=== PATIENT | male | born 1985 | race Caucasian/White ===

== ENCOUNTER → 2016-05-23 | Outpatient (CLI) | payer OTHER ==
[2016-05-23 19:23] LABS: ALBUMIN 4.2 GM/DL (3.2-5.2); ALBUMIN/GLOBULIN RATIO 1.56 (1.00-1.93); ALKALINE PHOSPHATASE 52 U/L (45-117); ALT/SGPT 36 U/L (12-78); ANION GAP 8 MEQ/L (8-16); AST/SGOT 14 U/L (15-37); BILIRUBIN,TOTAL 0.5 MG/DL (0.2-1.0); BLOOD UREA NITROGEN 15 MG/DL (7-18); CALCIUM LEVEL 8.9 MG/DL (8.5-10.1); CARBON DIOXIDE LEVEL 28 MEQ/L (21-32); CHLORIDE LEVEL 106 MEQ/L (98-107); CHOLESTEROL LEVEL 200 MG/DL (<200); CREATININE FOR GFR 1.05 MG/DL (0.70-1.30); GLOMERULAR FILTRATION RATE > 60.0 (>60); GLUCOSE, FASTING 87 MG/DL (70-105); POTASSIUM SERUM 4.1 MEQ/L (3.5-5.1); SODIUM LEVEL 142 MEQ/L (136-145); TOTAL PROTEIN 6.9 GM/DL (6.4-8.2); TRIGLYCERIDES LEVEL 68 MG/DL (<150)
== END ==
LOC: M WUC 08:02
PROVIDERS: ATTEND Emergency Medicine
DX: I10 Essential (primary) hypertension (principal); E78.2 Mixed hyperlipidemia

== ENCOUNTER 2016-06-01 09:11 | Emergency (ER) | payer OTHER ==
[2016-06-01] MEDS ORDERED: FAMOTIDINE 20 MG TAB As Ordered ONE (10:05)
[2016-06-01] MEDS ORDERED: diphenhydrAMINE 25 MG CAP As Ordered ONE (10:05)
[2016-06-01] MEDS ORDERED: methylPREDNISolone INJ 125 MG/2 ML VIAL (J2930) As Ordered ONE (10:05)
--- NOTE | 2016-06-01 10:29 | EDDOCDS ---
Nurse's Notes [facility] Name: Bk Lugo Age: 30 yrs Sex: Male : 1985 Arrival Date: 06/01/2016 Time: 09:11 Bed TR7 Private MD: Kraig Sanchez P. Diagnosis: Urticaria Presentation: 06/01 09:18 Presenting complaint: Patient states: pt c/o "allergic reaction." denies known allergy. ead onset of hives yesterday. reports taking 2 Benadryl's last night with no improvement. redness and swelling around eyes. Onset: The symptoms/episode began/occurred gradually, yesterday. The patient has a history of a previous allergic reaction. reports to [facility]. Anaphylaxis evaluation, the patient reports or I have noted the following symptoms which indicate a significant risk of anaphylaxis: no signs or symptoms of anaphylaxis were noted. Adult Sepsis Screening: The patient does not have new or worsening altered mentation. Patient's respiratory rate is less than 22. Systolic blood pressure is greater than 100. Patient has a qSOFA score of 0- Negative Sepsis Screen. Suicide/Homicide risk assessment- the patient denies having any suicidal and/or homicidal ideations and does not present with any other emotional, behavioral or mental health complaints. Status: Patient is not a sales service professional or dependent. Transition of care: patient was not received from another setting of care. 09:18 Acuity: ROBEL Level 3 ead 09:18 Method Of Arrival: Walkin/Carried/Asstd ead Triage Assessment: 09:22 General: Appears in no apparent distress, comfortable, Behavior is appropriate for age, ead cooperative. Pain: Denies pain. HIV screening NA for this visit Offered previously. Neurological: No deficits noted. Respiratory: Airway is patent Respiratory effort is even, unlabored, Reports no respiratory complaints. Derm: Rash noted that is itchy, on face, right arm and left arm. Historical: - Allergies: Amoxicillin; SULFA (SULFONAMIDES); - Home Meds: 1. Benadryl Unknown Oral every 6 hours 2. lisinopril 10 mg Oral tab once daily 3. esomeprazole magnesium 40 mg Oral cpDR once daily 4. Flonase 50 mcg/actuation Nasal spsn once daily 5. Singulair 10 mg oral tab once daily 6. levocetirizine 5 mg oral tab once daily - PMHx: Hypertension; - PSHx: Tonsillectomy; - Social history: Smoking status: Patient uses tobacco products, current every day smoker. No barriers to communication noted, The patient speaks fluent Cambodian, Speaks appropriately for age. - Family history: Not pertinent. - : The pt / caregiver states he / she is not on anticoagulants. Home medication list is obtained from the patient. - Exposure Risk Screening:: None identified. Screenin:23 Screening information is obtained from the patient. Fall risk: No risks identified. ead Assistance ADL's: requires no assistance with activities of daily living. Abuse/DV Screen: The patient / caregiver reports he/she is: not in a situation that causes fear, pain or injury. Nutritional screening: No deficits noted. Advance Directives: Currently, there is no health care proxy. There is no Power of Heavy Equipment Technician. home support is adequate. Assessment: 10:23 General: Appears in no apparent distress, Behavior is appropriate for age, cooperative. ead Neurological: No deficits noted. Respiratory: Airway is patent Respiratory effort is even, unlabored. Derm: Rash noted that is itchy, red, on face, right arm and left arm. Vital Signs: 09:13 BP 138 / 74; Pulse 71; Resp 18; Temp 97.4(O); Pulse Ox 98% on R/A; Weight 98.43 kg (R); dem1 Height 6 ft. 0 in. (182.88 cm) (R); Pain 0/10; 10:28 BP 137 / 79; Pulse 78; Resp 16; Temp 97.0(O); Pulse Ox 99% on R/A; Pain 0/10; ead 09:13 Body Mass Index 29.43 (98.43 kg, 182.88 cm) [facility] Vitals: 09:13 Log In Time: June 01, 2016 at 09:11. [facility] ED Course: 09:12 Patient visited by Christine Whalen. az 09:12 Patient moved to Waiting az 09:13 Kraig Sanchez is Private Physician. dem1 09:14 Patient visited by Ian Samson. dem1 09:14 Patient moved to Pre RCE dem1 09:20 Triage Initiated ead 09:28 Patient moved to Triage 1 ml6 09:40 [facility] Cap[facility] cc10 09:40 Kirill Peoples MD is Attending Physician. cc10 09:40 Patient visited by Truong Capone PA-C. cc10 09:40 Patient visited by Truong Capone PA-C. cc10 09:54 Kraig Sanchez is Referral Physician. cc10 10:10 Patient moved to PR1 / 25 ead 10:23 The patient / caregiver is instructed regarding the plan of care and ED course. ead 10:23 No IV's were initiated during this patient's visit. No procedures done that require ead assistance. 10:28 Patient moved to TR7 ead Administered Medications: 10:11 Drug: methylPREDNISolone Sodium Succinate 125 mg [methylprednisolone sodium succ 125 mg ead solution for injection (125 mg)] Route: IM; Site: left deltoid; 10:29 Follow up: Response: No Adverse Reaction ead 10:11 Drug: diphenhydrAMINE 25 mg [diphenhydramine 25 mg capsule (1 caps)] Route: PO; ead 10:11 Drug: Famotidine 20 mg [famotidine 20 mg tablet (1 tabs)] Route: PO; ead Order Results: There are currently no results for this order. Outcome: 09:54 Discharge ordered by Provider. cc10 10:23 Discharge Assessment: Patient awake and alert. obeys commands, Oriented to person, ead place and time. patient administered narcotics - no. The following High Risk Discharge criteria are identified: None. Discharged to home ambulatory. Condition: unchanged. Discharge instructions given to patient, Instructed on discharge instructions, follow up and referral plans. medication usage, Demonstrated understanding of instructions, medications, Pt was receptive of discharge instructions/ teaching. Prescriptions given X 2. No special radiology studies were completed. Property sent home with patient. 10:29 Patient left the ED. ead Signatures: Yuniel Roberts RN RN ml6 Ian Samson1 Leslie Aguirre RN RN ead Truong Capone PA-C PA-C cc10 Christine Whalen MTDD
--- NOTE | 2016-06-01 10:29 | EDDOCDS ---
Physician Documentation [facility] Name: Bk Lugo Age: 30 yrs Sex: Male : 1985 Arrival Date: 06/01/2016 Time: 09:11 Bed TR7 Private MD: Kraig Sanchez P. Disposition: 06/01/16 09:54 Discharged to Home/Self Care. Impression: Urticaria. - Condition is Stable. - Discharge Instructions: Hives. - Prescriptions for Prednisone 20 mg Oral Tablet - take 1 tablet by ORAL route once daily for 5 days; 5 tablet. Zantac 300 mg Oral Tablet - take 1 tablet by ORAL route At bedtime; 30 tablet. - Medication Reconciliation, Work Release Form - 2 day form. - Follow up: Kraig Sanchez; When: 1 - 2 days; Reason: Wound/Symptom Recheck, Further diagnostic work-up, Recheck today's complaints, Worsening of conditions, Continuance of care. - Problem is new. - Symptoms have improved. Historical: - Allergies: Amoxicillin; SULFA (SULFONAMIDES); - Home Meds: 1. Benadryl Unknown Oral every 6 hours 2. lisinopril 10 mg Oral tab once daily 3. esomeprazole magnesium 40 mg Oral cpDR once daily 4. Flonase 50 mcg/actuation Nasal spsn once daily 5. Singulair 10 mg oral tab once daily 6. levocetirizine 5 mg oral tab once daily - PMHx: Hypertension; - PSHx: Tonsillectomy; - Social history: Smoking status: Patient uses tobacco products, current every day smoker. No barriers to communication noted, The patient speaks fluent Vietnamese, Speaks appropriately for age. - Family history: Not pertinent. - : The pt / caregiver states he / she is not on anticoagulants. Home medication list is obtained from the patient. - Exposure Risk Screening:: None identified. Vital Signs: 06/01 09:13 BP 138 / 74; Pulse 71; Resp 18; Temp 97.4(O); Pulse Ox 98% on R/A; Weight 98.43 kg / dem1 217 lbs (R); Height 6 ft. 0 in. (182.88 cm) (R); Pain 0/10; 10:28 BP 137 / 79; Pulse 78; Resp 16; Temp 97.0(O); Pulse Ox 99% on R/A; Pain 0/10; ead 09:13 Body Mass Index 29.43 (98.43 kg, 182.88 cm) dem1 MDM: 09:48 methylPREDNISolone Sodium Succinate 125 mg IM once ordered. cc10 09:48 diphenhydrAMINE 25 mg PO once ordered. cc10 09:48 Famotidine 20 mg PO once ordered. cc10 10:19 Financial registration complete. az Administered Medications: 10:11 Drug: methylPREDNISolone Sodium Succinate 125 mg [methylprednisolone sodium succ 125 mg ead solution for injection (125 mg)] Route: IM; Site: left deltoid; 10:29 Follow up: Response: No Adverse Reaction ead 10:11 Drug: diphenhydrAMINE 25 mg [diphenhydramine 25 mg capsule (1 caps)] Route: PO; ead 10:11 Drug: Famotidine 20 mg [famotidine 20 mg tablet (1 tabs)] Route: PO; ead Signatures: Leslie Aguirre RN RN ead Truong Capone PA-C PAEmilia cc10 Christine Whalen or MTDD
--- NOTE | 2016-06-03 11:30 | EDDOCDS ---
Physician Documentation [facility] Name: Bk Lugo Age: 30 yrs Sex: Male : 1985 Arrival Date: 06/01/2016 Time: 09:11 Bed TR7 Private MD: Kraig Sanchez P. Disposition: 06/01/16 09:54 Discharged to Home/Self Care. Impression: Urticaria. - Condition is Stable. - Discharge Instructions: Hives. - Prescriptions for Prednisone 20 mg Oral Tablet - take 1 tablet by ORAL route once daily for 5 days; 5 tablet. Zantac 300 mg Oral Tablet - take 1 tablet by ORAL route At bedtime; 30 tablet. - Medication Reconciliation, Work Release Form - 2 day form. - Follow up: Kraig Sanchez; When: 1 - 2 days; Reason: Wound/Symptom Recheck, Further diagnostic work-up, Recheck today's complaints, Worsening of conditions, Continuance of care. - Problem is new. - Symptoms have improved. Historical: - Allergies: Amoxicillin; SULFA (SULFONAMIDES); - Home Meds: 1. Benadryl Unknown Oral every 6 hours 2. lisinopril 10 mg Oral tab once daily 3. esomeprazole magnesium 40 mg Oral cpDR once daily 4. Flonase 50 mcg/actuation Nasal spsn once daily 5. Singulair 10 mg oral tab once daily 6. levocetirizine 5 mg oral tab once daily - PMHx: Hypertension; - PSHx: Tonsillectomy; - Social history: Smoking status: Patient uses tobacco products, current every day smoker. No barriers to communication noted, The patient speaks fluent Pashto, Speaks appropriately for age. - Family history: Not pertinent. - : The pt / caregiver states he / she is not on anticoagulants. Home medication list is obtained from the patient. - Exposure Risk Screening:: None identified. Vital Signs: 06/01 09:13 BP 138 / 74; Pulse 71; Resp 18; Temp 97.4(O); Pulse Ox 98% on R/A; Weight 98.43 kg / dem1 217 lbs (R); Height 6 ft. 0 in. (182.88 cm) (R); Pain 0/10; 10:28 BP 137 / 79; Pulse 78; Resp 16; Temp 97.0(O); Pulse Ox 99% on R/A; Pain 0/10; ead 09:13 Body Mass Index 29.43 (98.43 kg, 182.88 cm) dem1 MDM: 09:48 methylPREDNISolone Sodium Succinate 125 mg IM once ordered. cc10 09:48 diphenhydrAMINE 25 mg PO once ordered. cc10 09:48 Famotidine 20 mg PO once ordered. cc10 10:19 Financial registration complete. az 10:57 [facility] Payment Agreement was scanned into [employer] and attached to record. az 14:18 T-Sheet-- Draft Copy was scanned into [employer] and attached to record. gb Administered Medications: 10:11 Drug: methylPREDNISolone Sodium Succinate 125 mg [methylprednisolone sodium succ 125 mg ead solution for injection (125 mg)] Route: IM; Site: left deltoid; 10:29 Follow up: Response: No Adverse Reaction ead 10:11 Drug: diphenhydrAMINE 25 mg [diphenhydramine 25 mg capsule (1 caps)] Route: PO; ead 10:11 Drug: Famotidine 20 mg [famotidine 20 mg tablet (1 tabs)] Route: PO; ead Signatures: Gracie Prather, Reg Reg Leslie Aragon,RN RN ead Truong Capone, PALeoncioC PAEmilia cc10 Christine Whalen nv The chart was reviewed and I authenticate all verbal orders and agree with the evaluation and treatment provided.Attachments: 10:57 [facility] Payment Agreement az 14:18 T-Sheet-- Draft Copy gb Chart Complete MTDD
--- NOTE | 2016-06-03 11:30 | EDDOCDS ---
Physician Documentation [facility] Name: Bk Lugo Age: 30 yrs Sex: Male : 1985 Arrival Date: 06/01/2016 Time: 09:11 Bed TR7 Private MD: Kraig Sanchez P. Disposition: 06/01/16 09:54 Discharged to Home/Self Care. Impression: Urticaria. - Condition is Stable. - Discharge Instructions: Hives. - Prescriptions for Prednisone 20 mg Oral Tablet - take 1 tablet by ORAL route once daily for 5 days; 5 tablet. Zantac 300 mg Oral Tablet - take 1 tablet by ORAL route At bedtime; 30 tablet. - Medication Reconciliation, Work Release Form - 2 day form. - Follow up: Kraig Sanchez; When: 1 - 2 days; Reason: Wound/Symptom Recheck, Further diagnostic work-up, Recheck today's complaints, Worsening of conditions, Continuance of care. - Problem is new. - Symptoms have improved. Historical: - Allergies: Amoxicillin; SULFA (SULFONAMIDES); - Home Meds: 1. Benadryl Unknown Oral every 6 hours 2. lisinopril 10 mg Oral tab once daily 3. esomeprazole magnesium 40 mg Oral cpDR once daily 4. Flonase 50 mcg/actuation Nasal spsn once daily 5. Singulair 10 mg oral tab once daily 6. levocetirizine 5 mg oral tab once daily - PMHx: Hypertension; - PSHx: Tonsillectomy; - Social history: Smoking status: Patient uses tobacco products, current every day smoker. No barriers to communication noted, The patient speaks fluent Hungarian, Speaks appropriately for age. - Family history: Not pertinent. - : The pt / caregiver states he / she is not on anticoagulants. Home medication list is obtained from the patient. - Exposure Risk Screening:: None identified. Vital Signs: 06/01 09:13 BP 138 / 74; Pulse 71; Resp 18; Temp 97.4(O); Pulse Ox 98% on R/A; Weight 98.43 kg / dem1 217 lbs (R); Height 6 ft. 0 in. (182.88 cm) (R); Pain 0/10; 10:28 BP 137 / 79; Pulse 78; Resp 16; Temp 97.0(O); Pulse Ox 99% on R/A; Pain 0/10; ead 09:13 Body Mass Index 29.43 (98.43 kg, 182.88 cm) dem1 MDM: 09:48 methylPREDNISolone Sodium Succinate 125 mg IM once ordered. cc10 09:48 diphenhydrAMINE 25 mg PO once ordered. cc10 09:48 Famotidine 20 mg PO once ordered. cc10 10:19 Financial registration complete. az 10:57 [facility] Payment Agreement was scanned into [employer] and attached to record. az 14:18 T-Sheet-- Draft Copy was scanned into [employer] and attached to record. gb Administered Medications: 10:11 Drug: methylPREDNISolone Sodium Succinate 125 mg [methylprednisolone sodium succ 125 mg ead solution for injection (125 mg)] Route: IM; Site: left deltoid; 10:29 Follow up: Response: No Adverse Reaction ead 10:11 Drug: diphenhydrAMINE 25 mg [diphenhydramine 25 mg capsule (1 caps)] Route: PO; ead 10:11 Drug: Famotidine 20 mg [famotidine 20 mg tablet (1 tabs)] Route: PO; ead Signatures: Gracie Prather, Reg Reg Leslie Aragon,RN RN ead Truong Capone, PALeoncioC PAEmilia cc10 Christine Whalen la The chart was reviewed and I authenticate all verbal orders and agree with the evaluation and treatment provided.Attachments: 10:57 [facility] Payment Agreement az 14:18 T-Sheet-- Draft Copy gb Chart Complete MTDD
--- NOTE | 2016-06-03 11:31 | EDDOCDS ---
Nurse's Notes [facility] Name: Bk Lugo Age: 30 yrs Sex: Male : 1985 Arrival Date: 06/01/2016 Time: 09:11 Bed TR7 Private MD: Kraig Sanchez P. Diagnosis: Urticaria Presentation: 06/01 09:18 Presenting complaint: Patient states: pt c/o "allergic reaction." denies known allergy. ead onset of hives yesterday. reports taking 2 Benadryl's last night with no improvement. redness and swelling around eyes. Onset: The symptoms/episode began/occurred gradually, yesterday. The patient has a history of a previous allergic reaction. reports to [facility]. Anaphylaxis evaluation, the patient reports or I have noted the following symptoms which indicate a significant risk of anaphylaxis: no signs or symptoms of anaphylaxis were noted. Adult Sepsis Screening: The patient does not have new or worsening altered mentation. Patient's respiratory rate is less than 22. Systolic blood pressure is greater than 100. Patient has a qSOFA score of 0- Negative Sepsis Screen. Suicide/Homicide risk assessment- the patient denies having any suicidal and/or homicidal ideations and does not present with any other emotional, behavioral or mental health complaints. Status: Patient is not a support services tech or dependent. Transition of care: patient was not received from another setting of care. 09:18 Acuity: ROBEL Level 3 ead 09:18 Method Of Arrival: Walkin/Carried/Asstd ead Triage Assessment: 09:22 General: Appears in no apparent distress, comfortable, Behavior is appropriate for age, ead cooperative. Pain: Denies pain. HIV screening NA for this visit Offered previously. Neurological: No deficits noted. Respiratory: Airway is patent Respiratory effort is even, unlabored, Reports no respiratory complaints. Derm: Rash noted that is itchy, on face, right arm and left arm. Historical: - Allergies: Amoxicillin; SULFA (SULFONAMIDES); - Home Meds: 1. Benadryl Unknown Oral every 6 hours 2. lisinopril 10 mg Oral tab once daily 3. esomeprazole magnesium 40 mg Oral cpDR once daily 4. Flonase 50 mcg/actuation Nasal spsn once daily 5. Singulair 10 mg oral tab once daily 6. levocetirizine 5 mg oral tab once daily - PMHx: Hypertension; - PSHx: Tonsillectomy; - Social history: Smoking status: Patient uses tobacco products, current every day smoker. No barriers to communication noted, The patient speaks fluent Mongolian, Speaks appropriately for age. - Family history: Not pertinent. - : The pt / caregiver states he / she is not on anticoagulants. Home medication list is obtained from the patient. - Exposure Risk Screening:: None identified. Screenin:23 Screening information is obtained from the patient. Fall risk: No risks identified. ead Assistance ADL's: requires no assistance with activities of daily living. Abuse/DV Screen: The patient / caregiver reports he/she is: not in a situation that causes fear, pain or injury. Nutritional screening: No deficits noted. Advance Directives: Currently, there is no health care proxy. There is no Power of Strip Deburrer. home support is adequate. Assessment: 10:23 General: Appears in no apparent distress, Behavior is appropriate for age, cooperative. ead Neurological: No deficits noted. Respiratory: Airway is patent Respiratory effort is even, unlabored. Derm: Rash noted that is itchy, red, on face, right arm and left arm. Vital Signs: 09:13 BP 138 / 74; Pulse 71; Resp 18; Temp 97.4(O); Pulse Ox 98% on R/A; Weight 98.43 kg (R); dem1 Height 6 ft. 0 in. (182.88 cm) (R); Pain 0/10; 10:28 BP 137 / 79; Pulse 78; Resp 16; Temp 97.0(O); Pulse Ox 99% on R/A; Pain 0/10; ead 09:13 Body Mass Index 29.43 (98.43 kg, 182.88 cm) [facility] Vitals: 09:13 Log In Time: June 01, 2016 at 09:11. [facility] ED Course: 09:12 Patient visited by Christine Whalen. az 09:12 Patient moved to Waiting az 09:13 Kraig Sanchez is Private Physician. dem1 09:14 Patient visited by Ian Samson. dem1 09:14 Patient moved to Pre RCE dem1 09:20 Triage Initiated ead 09:28 Patient moved to Triage 1 ml6 09:40 Tru[facility] Capone [facility] cc10 09:40 Kirill Peoples MD is Attending Physician. cc10 09:40 Patient visited by Truong Capone PA-C. cc10 09:40 Patient visited by Truong Capone PA-C. cc10 09:54 Kraig Sanchez is Referral Physician. cc10 10:10 Patient moved to PR1 / 25 ead 10:23 The patient / caregiver is instructed regarding the plan of care and ED course. ead 10:23 No IV's were initiated during this patient's visit. No procedures done that require ead assistance. 10:28 Patient moved to TR7 ead 10:57 [facility] Payment Agreement was scanned into [employer] and attached to record. az 14:18 T-Sheet-- Draft Copy was scanned into [employer] and attached to record. gb Administered Medications: 10:11 Drug: methylPREDNISolone Sodium Succinate 125 mg [methylprednisolone sodium succ 125 mg ead solution for injection (125 mg)] Route: IM; Site: left deltoid; 10:29 Follow up: Response: No Adverse Reaction ead 10:11 Drug: diphenhydrAMINE 25 mg [diphenhydramine 25 mg capsule (1 caps)] Route: PO; ead 10:11 Drug: Famotidine 20 mg [famotidine 20 mg tablet (1 tabs)] Route: PO; ead Order Results: There are currently no results for this order. Outcome: 09:54 Discharge ordered by Provider. cc10 10:23 Discharge Assessment: Patient awake and alert. obeys commands, Oriented to person, ead place and time. patient administered narcotics - no. The following High Risk Discharge criteria are identified: None. Discharged to home ambulatory. Condition: unchanged. Discharge instructions given to patient, Instructed on discharge instructions, follow up and referral plans. medication usage, Demonstrated understanding of instructions, medications, Pt was receptive of discharge instructions/ teaching. Prescriptions given X 2. No special radiology studies were completed. Property sent home with patient. 10:29 Patient left the ED. ead Signatures: Gracie Prather, Reg Reg Yuniel Lim RN RN ml6 Ian Samson dem1 Leslie Aguirre RN RN ead Truong Capone PA-C PA-C cc10 Christine Whalen az Chart Complete MTDD
== END 2016-06-01 10:29 | disposition home or self-care (01) ==
LOC: M ED 09:11
DX: L50.0 Allergic urticaria (principal); I10 Essential (primary) hypertension; Z72.0 Tobacco use; Z79.899 Other long term (current) drug therapy; Z88.0 Allergy status to penicillin; Z88.2 Allergy status to sulfonamides
CPT/HCPCS: 96372; 99283; J2930

== ENCOUNTER → 2017-01-05 | Outpatient (REF) | payer OTHER ==
[2017-01-05 11:20] LABS: ALBUMIN/GLOBULIN RATIO 1.48 (1.00-1.93); ALKALINE PHOSPHATASE 57 U/L (45-117); ALT/SGPT 41 U/L (12-78); ANION GAP 4 MEQ/L (8-16); AST/SGOT 21 U/L (15-37); BILIRUBIN,TOTAL 0.5 MG/DL (0.2-1.0); BLOOD UREA NITROGEN 15 MG/DL (7-18); CALCIUM LEVEL 8.8 MG/DL (8.5-10.1); CARBON DIOXIDE LEVEL 30 MEQ/L (21-32); CHLORIDE LEVEL 106 MEQ/L (98-107); CHOLESTEROL LEVEL 207 MG/DL (<200); CREATININE FOR GFR 0.89 MG/DL (0.70-1.30); GLOMERULAR FILTRATION RATE > 60.0 (>60); GLUCOSE, FASTING 90 MG/DL (70-105); POTASSIUM SERUM 4.1 MEQ/L (3.5-5.1); SODIUM LEVEL 140 MEQ/L (136-145); TOTAL PROTEIN 6.7 GM/DL (6.4-8.2); TRIGLYCERIDES LEVEL 124 MG/DL (<150)
== END ==
LOC: M LABDRAW1 08:58
PROVIDERS: ATTEND Emergency Medicine
DX: G35 Multiple sclerosis (principal); I10 Essential (primary) hypertension; E78.2 Mixed hyperlipidemia; Z77.011 Contact with and (suspected) exposure to lead

== ENCOUNTER → 2017-07-11 | Outpatient (REF) | payer OTHER ==
[2017-07-11 11:40] LABS: INFLUENZA A AMPLIFICATION NEGATIVE (NEGATIVE); INFLUENZA B AMPLIFICATION NEGATIVE (NEGATIVE)
== END ==
LOC: M LAB 10:52
DX: J11.1 Influenza due to unidentified influenza virus with other respiratory manifestations (principal)

== ENCOUNTER → 2018-02-14 | Outpatient (REF) | payer OTHER ==
[2018-02-14 11:24] LABS: ALBUMIN 3.9 GM/DL (3.2-5.2); ALBUMIN/GLOBULIN RATIO 1.44 (1.00-1.93); ALKALINE PHOSPHATASE 59 U/L (45-117); ALT/SGPT 42 U/L (12-78); ANION GAP 8 MEQ/L (8-16); AST/SGOT 19 U/L (7-37); BILIRUBIN,TOTAL 0.6 MG/DL (0.2-1.0); BLOOD UREA NITROGEN 19 MG/DL (7-18); CALCIUM LEVEL 8.9 MG/DL (8.5-10.1); CARBON DIOXIDE LEVEL 28 MEQ/L (21-32); CHLORIDE LEVEL 105 MEQ/L (98-107); CHOLESTEROL LEVEL 206 MG/DL (<200); CREATININE FOR GFR 1.05 MG/DL (0.70-1.30); GLOMERULAR FILTRATION RATE > 60.0 (>60); GLUCOSE, FASTING 89 MG/DL (70-100); HDL CHOLESTEROL 43 MG/DL (>40); LDL CHOLESTEROL 142 MG/DL (<100); NON-HDL-C 163 MG/DL; POTASSIUM SERUM 3.8 MEQ/L (3.5-5.1); SODIUM LEVEL 141 MEQ/L (136-145); TOTAL PROTEIN 6.6 GM/DL (6.4-8.2); TRIGLYCERIDES LEVEL 103 MG/DL (<150)
== END ==
LOC: M LABDRAW1 11:05
DX: I10 Essential (primary) hypertension (principal); E78.2 Mixed hyperlipidemia
CPT/HCPCS: 80053

== ENCOUNTER → 2019-04-15 | Outpatient (CLI) | payer OTHER ==
[2019-04-15 13:23] LABS: ALBUMIN 4.2 GM/DL (3.2-5.2); ALT/SGPT 32 U/L (12-78); BILIRUBIN,TOTAL 0.6 MG/DL (0.2-1.0); BLOOD UREA NITROGEN 18 MG/DL (7-18); CALCIUM LEVEL 8.9 MG/DL (8.5-10.1); CARBON DIOXIDE LEVEL 27 MEQ/L (21-32); CHLORIDE LEVEL 108 MEQ/L (98-107); CHOLESTEROL LEVEL 218 MG/DL (<200); CHOLESTEROL RISK RATIO 4.844 (<5); CREATININE FOR GFR 1.12 MG/DL (0.70-1.30); GLOMERULAR FILTRATION RATE > 60.0 (>60); GLUCOSE, FASTING 88 MG/DL (70-100); HDL CHOLESTEROL 45 MG/DL (>40); LDL CHOLESTEROL 157 MG/DL (<100); NON-HDL-C 173 MG/DL; POTASSIUM SERUM 4.2 MEQ/L (3.5-5.1); SODIUM LEVEL 142 MEQ/L (136-145); TOTAL PROTEIN 6.9 GM/DL (6.4-8.2); TRIGLYCERIDES LEVEL 81 MG/DL (<150)
== END ==
LOC: M WUC 08:07
PROVIDERS: ATTEND Physician Assistant
DX: I10 Essential (primary) hypertension (principal); E78.2 Mixed hyperlipidemia

== ENCOUNTER → 2019-06-30 | Outpatient (REF) | payer OTHER | LOC: M SMT 13:14 | PROVIDERS: ATTEND Urology | DX: Z30.2 Encounter for sterilization (principal) ==

== ENCOUNTER → 2019-09-01 | Outpatient (REF) | payer OTHER ==
[2019-09-01 13:11] LABS: SEMEN APPEARANCE OPAQUE (OPAQUE); SEMEN VISCOSITY LIQUID (LIQUID); SEMEN VOLUME 2.5 ml (2.0-5.0); WBC CONCENTRATION <=1 M/ml (<=1 M/ml)
== END ==
LOC: M SMT 12:03
PROVIDERS: ATTEND Urology
DX: Z98.52 Vasectomy status (principal)

== ENCOUNTER → 2019-10-14 | Outpatient (CLI) | payer OTHER ==
[2019-10-14 14:21] LABS: CHOLESTEROL RISK RATIO 4.431 (<5)
== END ==
LOC: M WUC 09:03
PROVIDERS: ATTEND Physician Assistant
DX: I10 Essential (primary) hypertension (principal)

== ENCOUNTER → 2019-10-20 | Outpatient (REF) | payer OTHER ==
[2019-10-20 23:02] LABS: APPEARANCE, URINE HAZY (CLEAR); BACTERIA, URINE AUTO NEGATIVE (NEGATIVE); BILIRUBIN, URINE AUTO NEGATIVE (NEGATIVE); BLOOD, URINE BLOOD NEGATIVE (NEGATIVE); COLOR, URINE YELLOW (YELLOW); GLUCOSE, URINE (UA) AUTO NEGATIVE (NEGATIVE); KETONE, URINE AUTO 1+ mg/dL (NEGATIVE); LEUKOCYTE ESTERASE, URINE AUTO NEGATIVE (NEGATIVE); MUCUS, URINE SMALL (NEGATIVE); NITRITE, URINE AUTO NEGATIVE (NEGATIVE); PROTEIN, URINE AUTO 1+ mg/dL (NEGATIVE); RBC, URINE AUTO 1 /HPF (0-3); SQUAMOUS EPITHELIAL CELL UR AU 0 /HPF (0-6); UROBILINOGEN, URINE AUTO 0.2 mg/dL (0.0-2.0); WBC, URINE AUTO 1 /HPF (0-3)
== END ==
LOC: M LAB REF 08:22
PROVIDERS: ATTEND Physician Assistant Medical
DX: N39.0 Urinary tract infection, site not specified (principal)

== ENCOUNTER → 2020-05-02 | Outpatient (CLI) | payer OTHER ==
[2020-05-02 11:32] LABS: ALT/SGPT 32 U/L (12-78); BILIRUBIN,TOTAL 0.6 MG/DL (0.2-1.0); BLOOD UREA NITROGEN 19 MG/DL (7-18); CALCIUM LEVEL 9.4 MG/DL (8.5-10.1); CARBON DIOXIDE LEVEL 28 MEQ/L (21-32); CHLORIDE LEVEL 105 MEQ/L (98-107); CHOLESTEROL LEVEL 203 MG/DL (<200); CHOLESTEROL RISK RATIO 3.759 (<5); CREATININE FOR GFR 1.01 MG/DL (0.70-1.30); GLOMERULAR FILTRATION RATE > 60.0 (>60); GLUCOSE, FASTING 83 MG/DL (70-100); HDL CHOLESTEROL 54 MG/DL (>40); LDL CHOLESTEROL 138 MG/DL (<100); NON-HDL-C 149 MG/DL; POTASSIUM SERUM 4.3 MEQ/L (3.5-5.1); SODIUM LEVEL 138 MEQ/L (136-145); TOTAL PROTEIN 6.5 GM/DL (6.4-8.2); TRIGLYCERIDES LEVEL 55 MG/DL (<150)
== END ==
LOC: M WUC 08:33
PROVIDERS: ATTEND Physician Assistant
DX: E78.2 Mixed hyperlipidemia (principal); I10 Essential (primary) hypertension

== ENCOUNTER → 2021-05-08 | Outpatient (CLI) | payer OTHER ==
[2021-05-08 13:45] LABS: ALBUMIN 4.2 GM/DL (3.2-5.2); ALT/SGPT 37 U/L (12-78); BILIRUBIN,TOTAL 0.5 MG/DL (0.2-1.0); BLOOD UREA NITROGEN 15 MG/DL (7-18); CALCIUM LEVEL 9.4 MG/DL (8.5-10.1); CARBON DIOXIDE LEVEL 30 MEQ/L (21-32); CHLORIDE LEVEL 104 MEQ/L (98-107); CHOLESTEROL LEVEL 203 MG/DL (<200); CHOLESTEROL RISK RATIO 3.327 (<5); GLOMERULAR FILTRATION RATE > 60.0 (>60); GLUCOSE, FASTING 94 MG/DL (70-100); HDL CHOLESTEROL 61 MG/DL (>40); LDL CHOLESTEROL 136 MG/DL (<100); NON-HDL-C 142 MG/DL; POTASSIUM SERUM 4.2 MEQ/L (3.5-5.1); SODIUM LEVEL 141 MEQ/L (136-145); TOTAL PROTEIN 6.8 GM/DL (6.4-8.2); TRIGLYCERIDES LEVEL 29 MG/DL (<150)
== END ==
LOC: M WUC 10:24
PROVIDERS: ATTEND Nurse Practitioner Family
DX: I10 Essential (primary) hypertension (principal)

== ENCOUNTER → 2023-05-21 | Outpatient (CLI) | payer OTHER ==
[2023-05-21 11:30] LABS: ALBUMIN 4.1 G/DL (3.2-5.2); ALKALINE PHOSPHATASE 59 U/L (46-116); ALT/SGPT 51 U/L (7.0-40); AST/SGOT 16 U/L (<34); BILIRUBIN,TOTAL 0.6 MG/DL (0.3-1.2); BLOOD UREA NITROGEN 16 MG/DL (9-23); CALCIUM LEVEL 8.6 MG/DL (8.5-10.1); CARBON DIOXIDE LEVEL 30 MMOL/L (20-31); CHLORIDE LEVEL 106 MMOL/L (98-107); CHOLESTEROL LEVEL 183 MG/DL (<200); CHOLESTEROL RISK RATIO 3.76 (<5); CREATININE FOR GFR 0.88 MG/DL (0.70-1.30); GLOMERULAR FILTRATION RATE > 60.0 (>60); GLUCOSE, FASTING 86 MG/DL (60-100); HDL CHOLESTEROL 48.6 MG/DL (>40); LDL CHOLESTEROL 119.8 MG/DL (<100); NON-HDL-C 134.4 MG/DL; POTASSIUM SERUM 4.1 MMOL/L (3.5-5.1); SODIUM LEVEL 136 MMOL/L (136-145); TOTAL PROTEIN 6.9 G/DL (5.7-8.2); TRIGLYCERIDES LEVEL 73 MG/DL (<150)
== END ==
LOC: M WUC 08:03
PROVIDERS: ATTEND Nurse Practitioner Family
DX: Z00.00 Encounter for general adult medical examination without abnormal findings (principal)

== ENCOUNTER → 2023-09-06 | Outpatient (REF) | payer OTHER | LOC: M LAB REF 16:09 | PROVIDERS: ATTEND Physician Assistant Medical | DX: R50.9 Fever, unspecified (principal) ==